=== PATIENT | female | born 1975 | race Caucasian/White ===

== ENCOUNTER 2022-04-22 07:12 | Emergency (ER) | payer BC, OTHER ==
[2022-04-22 07:27] VITALS: RESP 18; BMI 24.1
[2022-04-22 09:47] VITALS: BP 121/59; PULSE 88; TEMP 97.4
== END 2022-04-22 09:47 | disposition home or self-care (01) ==
LOC: JER 07:12
DX: U07.1 COVID-19 (principal); R07.0 Pain in throat
CPT/HCPCS: 0241U-QW; 71046-TC-FY; 99284-25